=== PATIENT | male | born 1985 | race American Indian/Alaskan Native ===

== ENCOUNTER 2019-10-28 10:22 | Inpatient (IN) | payer OTHER ==
--- NOTE | 2019-10-28 11:26 | Emergency Department Report ---
Chief Complaint: Chest Pain Stated Complaint: COUIGH/SOB Time Seen by Provider: 10/28/19 11:16 - Exam Vital Signs: Vital Signs 10/28/19 10:58 Temperature 98.7 F Pulse Rate 85 Respiratory 18 Rate Blood Pressure 139/108 O2 Sat by Pulse 96 Oximetry MSE screening note: Focused history and physical exam performed. Due to findings the following was ordered: 34 yo male HIV + with hx of Sarcoma c/o of dry cough x 1 week . Denies fever, n/v and SOB. ED Disposition for MSE Condition: Stable
[2019-10-28 12:02] LABS: Basophils % (Auto) 0.8 % (0.0-1.8); Eosinophils # (Auto) 0.2 K/mm3 (0.0-0.4); Hematocrit 40.1 % (35.5-45.6); Hemoglobin 13.2 gm/dl (11.8-15.2); Lymphocytes # (Auto) 1.6 K/mm3 (1.2-5.4); Lymphocytes % (Auto) 41.4 % (13.4-35.0); Mean Corpuscular HGB Conc 33 % (32-34); Mean Corpuscular Volume 86 fl (84-94); Monocytes # (Auto) 0.5 K/mm3 (0.0-0.8); Monocytes % (Auto) 12.8 % (0.0-7.3); Platelet Count 217 K/mm3 (140-440); Red Blood Count 4.64 M/mm3 (3.65-5.03); Red Cell Distribution Width 19.2 % (13.2-15.2)
--- NOTE | 2019-10-28 12:06 | XRay Report ---
CHEST 2 VIEWS INDICATION: MAIN: cough FOR 1 TO 2 WEEKS. COMPARISON: None FINDINGS: Support devices: Right-sided Mediport with tip in the high right atrium. Heart: Within normal limits. Lungs/pleura: Patchy right basilar airspace disease with moderate-sized layering pleural effusion. N o pneumothorax. Additional findings: None. IMPRESSION: 1. Right basilar airspace disease with moderate-sized effusion could represent pneumonia with subpulm onic effusion. Left lung is clear. Signer Name: Juan Fisher MD Signed: 10/28/2019 12:02 PM Workstation Name: [id number]
--- NOTE | 2019-10-28 12:16 | Emergency Department Report ---
ED General Adult HPI - General Chief complaint: Upper Respiratory Infection Stated complaint: COUIGH/SOB Time Seen by Provider: 10/28/19 11:16 Source: patient, RN notes reviewed Mode of arrival: Ambulatory Limitations: No Limitations - History of Present Illness Initial comments: This is a pleasant 34-year-old gentleman. This patient is not known to this provider previously. His primary care infectious disease doctor is Dr. West, in [place]. His oncologist is Dr. Cruz, in [place]. Past medical history includes HIV, on highly active antiretroviral therapy, history of Kaposi sarcoma, status post chemotherapy, history of pneumonia, with pleural effusion, compressive atelectasis, requiring thoracentesis the past. He presents to the ER with a complaint of painless cough. He reports the last time he had a cough like this, he required a prolonged hospitalization, and multiple pleural taps. He denies headache, neck pain, chest pain, abdominal pain, severe shortness of breath, vomiting, diarrhea. He denies urinary symptoms. He endorses a secondary complaint of request for STI post exposure prophylaxis. He reports a recent sexual contact, and he is concerned about exposure to gonorrhea and/or Chlamydia. He denies rectal pain. He denies dyschezia. He is specifically concerned about gonorrhea and/or Chlamydia. -: Gradual Consistency: intermittent Improves with: none Worsens with: none - Related Data Allergies Allergy/AdvReac Type Severity Reaction Status Date / Time No Known Allergies Allergy Unverified 10/28/19 11:14 ED Review of Systems ROS: Stated complaint: COUIGH/SOB Other details as noted in HPI Constitutional: denies: fever Eyes: denies: eye discharge ENT: congestion Respiratory: cough. denies: wheezing Cardiovascular: denies: chest pain Gastrointestinal: denies: abdominal pain, nausea, vomiting Genitourinary: denies: dysuria Musculoskeletal: denies: myalgia Skin: denies: lesions Neurological: denies: weakness Hematological/Lymphatic: denies: easy bleeding ED Past Medical Hx - Past Medical History Previous Medical History?: Yes Hx HIV: Yes (on anti-virals) Additional medical history: Hx. Kaposi's sarcoma, pneumonia, collaspsed lung, Recent chemo tx. - Surgical History Past Surgical History?: No - Social History Smoking Status: Never Smoker Substance Use Type: None ED Physical Exam - General Limitations: No Limitations General appearance: alert, in no apparent distress - Head Head exam: Present: atraumatic, normocephalic - Eye Eye exam: Present: normal appearance, EOMI. Absent: nystagmus - ENT ENT exam: Present: normal exam, normal orophraynx, mucous membranes moist, normal external ear exam - Neck Neck exam: Present: normal inspection, full ROM. Absent: tenderness, meningismus - Respiratory Respiratory exam: Present: decreased breath sounds. Absent: respiratory distress, wheezes, rales, rhonchi, stridor - Cardiovascular Cardiovascular Exam: Present: regular rate, normal rhythm, normal heart sounds. Absent: bradycardia, tachycardia, irregular rhythm, systolic murmur, diastolic murmur, rubs, gallop - GI/Abdominal GI/Abdominal exam: Present: soft, normal bowel sounds. Absent: distended, tenderness, guarding, rebound, rigid, pulsatile mass - Rectal Rectal exam: Present: deferred - Extremities Exam Extremities exam: Present: normal inspection, full ROM, other (2+ pulses noted in the bilateral upper and lower extremities. Muscular compartments are soft. The pelvis is stable. There is no long bony tenderness.). Absent: pedal edema, joint swelling, calf tenderness - Back Exam Back exam: Present: normal inspection, full ROM. Absent: tenderness, CVA tenderness (R), CVA tenderness (L), paraspinal tenderness, vertebral tenderness - Neurological Exam Neurological exam: Present: alert, other (there is no facial droop. The tongue is midline. Extraocular movements are intact bilaterally. There is 5/5 strength bilateral upper and lower extremities. Sensation is intact to light touch bilateral upper and lower extremities.) - Psychiatric Psychiatric exam: Present: normal affect, normal mood - Skin Skin exam: Present: warm, dry, intact, normal color. Absent: rash ED Course Vital Signs 10/28/19 10:58 Temperature 98.7 F Pulse Rate 85 Respiratory 18 Rate Blood Pressure 139/108 O2 Sat by Pulse 96 Oximetry ED Medical Decision Making - Lab Data Result diagrams: 10/28/19 11:45 10/28/19 11:45 Vital Signs 10/28/19 10:58 Temperature 98.7 F Pulse Rate 85 Respiratory 18 Rate Blood Pressure 139/108 O2 Sat by Pulse 96 Oximetry Lab Results 10/28/19 Range/Units 11:45 WBC 3.9 L (4.5-11.0) K/mm3 RBC 4.64 (3.65-5.03) M/mm3 Hgb 13.2 (11.8-15.2) gm/dl Hct 40.1 (35.5-45.6) % MCV 86 (84-94) fl MCH 29 (28-32) pg MCHC 33 (32-34) % RDW 19.2 H (13.2-15.2) % Plt Count 217 (140-440) K/mm3 Lymph % (Auto) 41.4 H (13.4-35.0) % [place] % (Auto) 12.8 H (0.0-7.3) % Eos % (Auto) 5.0 H (0.0-4.3) % Baso % (Auto) 0.8 (0.0-1.8) % Lymph # 1.6 (1.2-5.4) K/mm3 [place] # 0.5 (0.0-0.8) K/mm3 Eos # 0.2 (0.0-0.4) K/mm3 Baso # 0.0 (0.0-0.1) K/mm3 Seg Neutrophils % 40.0 (40.0-70.0) % Seg Neutrophils # 1.6 L (1.8-7.7) K/mm3 - EKG Data -: EKG Interpreted by [place] EKG shows normal: sinus rhythm Rate: normal - EKG Data 10/28/19 12:52 There is no prior EKG available for comparison. EKG today shows a sinus rhythm, 70 bpm, normal axis, QTC is 381 ms, nonspecific T-wave abnormality in lead 3, borderline high left ventricular voltage, the EKG is abnormal, there is no prior for comparison, the EKG is not consistent with ST elevation myocardial infarction. - Radiology Data Radiology results: report reviewed, image reviewed Print Report Referring Physician: JUVE ZHENG Patient Name: SJ BUSTAMANTE Date of : 1985 Sex: Male Report Date: 2019-10-28 Report Status: Finalized Findings [facility] [address] [place] [address] XRay Report Signed Patient: SJ BUSTAMANTE MR#: [id number] : 1985 Acct:[id number] Age/Sex: 34 / M ADM Date: 10/28/19 Loc: ED Attending Dr: Ordering Physician: FRANKY RODRIGUEZ Date of Service: 10/28/19 Procedure(s): XR chest routine 2V Accession Number(s): [id number] cc: FRANKY RODRIGUEZ Fluoro Time In Minutes: CHEST 2 VIEWS INDICATION: MAIN: cough FOR 1 TO 2 WEEKS. COMPARISON: None FINDINGS: Support devices: Right-sided Mediport with tip in the high right atrium. Heart: Within normal limits. Lungs/pleura: Patchy right basilar airspace disease with moderate-sized layering pleural effusion. No pneumothorax. Additional findings: None. IMPRESSION: 1. Right basilar airspace disease with moderate-sized effusion could represent pneumonia with subpulmonic effusion. Left lung is clear. Signer Name: Juan Fisher MD Signed: 10/28/2019 12:02 PM Workstation Name: [id number] [place] scribed By: JW Dictated By: Juan Fisher MD Electronically Authenticated By: Juan Fisher MD Signed Date/Time: 10/28/19 1202 DD/ 1201 - Medical Decision Making Differential diagnosis, including but not limited to: Pneumonia, recurrent pleural effusion, immunocompromise, history of Kaposi's sarcoma, HIV/AIDS Assessment and plan: 34-year-old gentleman with painless cough, found to have moderate right-sided pleural effusion and pneumonia, he is not on chronic Bactrim suppressive therapy, who is afebrile with otherwise reassuring vital signs. Patient is immune compromise given history of Kaposi's sarcoma, completion of chemotherapy, and HIV, requiring highly active antiretroviral therapy. His physicians are not only here in [place] and they are out of state. Given this, we would recommend admission to the medical service for IV antibiotics, and further inpatient management, given that patient has high risk of decompensation, and is not easily able to follow up with his outpatient physicians. Discussed this plan of care with the patient who verbalized understanding, and was amenable to hospitalization. Contacted my colleague, Dr. Balderrama, Hospital physician, who has accepted the patient to the medical service. Patient denied rectal pain and urinary symptoms, therefore, we will cover with ceftriaxone and azithromycin, which should be appropriate for both gonorrhea and/or Chlamydia, and pneumonia. Critical care attestation.: If time is entered above; I have spent that time in minutes in the direct care of this critically ill patient, excluding procedure time. ED Disposition Clinical Impression: Pleural effusion, History of Kaposi's sarcoma, History of HIV infection Pneumonia Qualifiers: Pneumonia type: due to unspecified organism Laterality: right Lung location: unspecified part of lung Qualified Code(s): J18.9 - Pneumonia, unspecified organism Disposition: OP ADMIT IP TO THIS HOSP Is pt being admited?: Yes Condition: Stable Instructions: Bacterial Pneumonia (ED)
[2019-10-28 12:26] LABS: Alanine Aminotransferase 13 units/L (7-56); Albumin 3.7 g/dL (3.9-5); BUN/Creatinine Ratio 9; Blood Urea Nitrogen 7 mg/dL (9-20); Calcium 9.2 mg/dL (8.4-10.2); Hemolysis Index 21
[2019-10-28] MEDS ORDERED: cefTRIAXone/NS 1 GM/50 ML 1 GM/50 ML BAG IV ONE (12:35)
[2019-10-28] MEDS ORDERED: AZITHROMYCIN 250 MG TAB PO ONE (12:35)
[2019-10-28] MEDS ORDERED: SODIUM CHLORIDE 0.9% 500 ML 500 ML IV ONE (12:35)
--- NOTE | 2019-10-28 17:21 | History and Physical Report ---
History of Present Illness Date of admission: 10/28/19 12:56 Chief complaint: Im coughing, and its hard to breathe History of present illness: 33 YO Male with HIV on HAART Therapy, Kaposi Sarcoma S/P Chemotherapy presents to ED for evaluation. Pt states that he has experienced productive cough of clear sputum, and subjective fever over the past 4 days with worsening symptoms over the past 1 day. PT transported to [facility] via private vehicle. Pt seen and evaluated in ED and found to have Pneumonia complicated by an Effusion. Pt admitted to medical floor and initiated on Pneumonia protocol. Pt denies chills, chest pain, headache, neck pain, syncope, abdominal pain, severe shortness of breath, vomiting, diarrhea, skin rash or recent ill contacts. No prior admission for review. All medication listed at time of admission has been reconciled. Past History Past Medical History: other (See HPI) Past Surgical History: No surgical history, Other (reviewed) Social history: single. denies: smoking, alcohol abuse, prescription drug abuse Family history: no significant family history (reviewed) Medications and Allergies Allergies Allergy/AdvReac Type Severity Reaction Status Date / Time No Known Allergies Allergy Unverified 10/28/19 11:14 Review of Systems Constitutional: fever, malaise, no weight loss, no weight gain, no chills, no sweats, no night sweats Ears, nose, mouth and throat: no ear pain, no ear discharge, no tinnitis, no decreased hearing, no nose pain, no nasal congestion Cardiovascular: no chest pain, no edema, no syncope Respiratory: cough, cough with sputum, no hemoptysis, no shortness of breath, no dyspnea on exertion, no congestion Gastrointestinal: no nausea, no diarrhea, no constipation, no change in bowel habits Genitourinary Male: no hematuria, no flank pain, no discharge, no urinary frequency, no urinary hesitancy Rectal: no pain, no incontinence, no bleeding Musculoskeletal: no neck stiffness, no neck pain, no shooting arm pain, no arm numbness/tingling, no low back pain, no leg numbness/tingling Integumentary: no rash, no pruritis, no redness, no sores, no wounds, no jaundice Neurological: no paralysis, no tingling, no seizures, no tremors Psychiatric: no anxiety, no memory loss, no change in sleep habits, no insomnia Endocrine: no heat intolerance, no polyphagia, no excessive thirst, no polydipsia, no polyuria, no nocturia, no flushing Hematologic/Lymphatic: no easy bruising, no easy bleeding, no lymphadenopathy, no lymphedema Allergic/Immunologic: no urticaria, no allergic rhinitis, no persistent infectio ns, no anaphylaxis Exam - Constitutional Vitals: Temp Pulse Resp BP Pulse Ox 97.9 F 89 20 136/95 97 10/28/19 16:37 10/28/19 16:37 10/28/19 16:37 10/28/19 16:37 10/28/19 16:37 General appearance: Present: mild distress, cachectic - EENT Eyes: Present: PERRL ENT: hearing intact, clear oral mucosa - Neck Neck: Present: supple, normal ROM - Respiratory Respiratory effort: normal Respiratory: bilateral: diminished - Cardiovascular Heart Sounds: Present: S1 & S2. Absent: rub, click - Extremities Extremities: pulses symmetrical, No edema Peripheral Pulses: within normal limits - Abdominal General gastrointestinal: Present: soft, non-tender, non-distended, normal bowel sounds Male genitourinary: Present: normal - Integumentary Integumentary: Present: clear, warm, dry - Musculoskeletal Musculoskeletal: gait normal, strength equal bilaterally - Psychiatric Psychiatric: appropriate mood/affect, intact judgment & insight - Neurologic Neurologic: CNII-XII intact, moves all extremities Results - Labs CBC & Chem 7: 10/28/19 11:45 10/28/19 11:45 Labs: Abnormal lab results 10/28/19 10/28/19 10/28/19 Range/Units 11:45 11:45 13:09 WBC 3.9 L (4.5-11.0) K/mm3 RDW 19.2 H (13.2-15.2) % Lymph % (Auto) 41.4 H (13.4-35.0) % [place] % (Auto) 12.8 H (0.0-7.3) % Eos % (Auto) 5.0 H (0.0-4.3) % Seg Neutrophils # 1.6 L (1.8-7.7) K/mm3 BUN 7 L (9-20) mg/dL Lactate Dehydrogenase 212 H (91-180) units/L Total Protein 8.9 H (6.3-8.2) g/dL Albumin 3.7 L (3.9-5) g/dL Assessment and Plan - Patient Problems (1) Pneumonia Current Visit: Yes Status: Acute Qualifiers: Pneumonia type: due to unspecified organism Laterality: right Lung location: lower lobe of lung Qualified Code(s): J18.9 - Pneumonia, unspecified organism Plan to address problem: Pneumonia protocol: IV antibiotic therapy, IVF resuscitation therapy, CBC, CMP, Chest x ray, supplemental oxygen, pulse oximetry, nebulizer therapy. (2) HIV disease Current Visit: Yes Status: Acute Plan to address problem: continue HAART therapy, Outpatient ID F/U care. (3) Pleural effusion Current Visit: Yes Status: Acute Plan to address problem: Right Lateral Decubitus Chest x ray in am, supportive care (4) DVT prophylaxis Current Visit: Yes Status: Acute Plan to address problem: SCD to BLE while in bed, Pt ambulatory
[2019-10-28] MEDS ORDERED: ACETAMINOPHEN 325 MG TAB PO PRN (18:52)
[2019-10-28] MEDS ORDERED: ONDANSETRON 4 MG/2 ML INJ IV PRN (18:52)
[2019-10-28] MEDS ORDERED: oxyCODONE /ACETAMINOPHEN 5-325MG TAB PO PRN (18:52)
[2019-10-28] MEDS ORDERED: ALBUTEROL 2.5 MG/3 ML NEBU IH PRN (18:52)
--- NOTE | 2019-10-29 08:04 | XRay Report ---
CHEST 1 VIEW INDICATION: pleural effusion. COMPARISON: 10/28/2019. FINDINGS: Support devices: Right IJ chest port unchanged. Heart: Within normal limits. Lungs/Pleura: Right-sided pleural fluid with associated volume loss/consolidation is unchanged. Mild parenchymal change left base remains. Additional findings: None. IMPRESSION: No significant change. Signer Name: Aditya Ordaz MD Signed: 10/29/2019 8:00 AM Workstation Name: [id number]
[2019-10-29] MEDS: AZITHROMYCIN 500 MG in SODIUM CHLORIDE 0.9% 250ML 250 ML IV SCH (10:06)
[2019-10-29] MEDS: cefTRIAXone/NS 2 GM/100 ML 2 GM/100 ML BAG IV SCH (10:06)
[2019-10-29 10:34] LABS: INR 1.09 (0.87-1.13)
--- NOTE | 2019-10-29 15:14 | Progress Note ---
Assessment and Plan / Pneumonia w/o sepsis Pneumonia protocol: IV antibiotic therapy, IVF resuscitation therapy, supplemental oxygen, pulse oximetry, nebulizer therapy. follow cx, consult ID as has h/o HIV / HIV disease with h/o [place] continue HAART therapy, Outpatient ID F/U care. / Pleural effusion Right will order thoracetesis /DVT prophylaxis SCD to BLE while in bed, Pt ambulatory Brief History: The patient is a 34-year-old male with HIV on Biktarvy, Kaposi Sarcoma involving his skin, s/p chemotherapy came in to the emergency room with complaints of cough going on for about a week. CXR here was concerning for RLL pneumonia and effusion. He otherwise denies any fever or chills. admitted for further mx Hospitalist Physical exam: GENERAL: well-developed AAM lying on bed appeared to be in no discomfort. HEENT: Normocephalic. Atraumatic. No conjunctival congestion or icterus. Patient has moist mucous membranes. NECK: Supple. Trachea midline. CHEST/LUNGS: coarse BS auscultated bilaterally - right more than left, breathing nonlabored. HEART/CARDIOVASCULAR: Regular in rate and rhythm. S1 and S2 positive. ABDOMEN: Abdomen is soft, nontender. Patient has normal bowel sounds. SKIN: Warm and dry. NEURO: No focal motor deficit. Follows command. MUSCULOSKELETAL: No joint effusion or tenderness. EXTRIMITY: No edema, no cyanosis or clubbing. PSYCH: Cooperative. Subjective Date of service: 10/29/19 Interval history: Patient seen and examined. Medical records and medication list reviewed. No acute event overnight noted by the RN. Patient denies any chest pain but has difficulty breathing on exertion. Patient is tolerating diet. Discussed plan of care at bedside with patient. Objective - Constitutional Vitals: Vital Signs - 12hr 10/29/19 10/29/19 10/29/19 06:12 08:34 11:56 Temperature 99.0 F 97.7 F Pulse Rate 88 91 H Respiratory 18 18 Rate Blood Pressure 134/82 138/91 O2 Sat by Pulse 95 96 98 Oximetry - Labs CBC & Chem 7: 10/28/19 11:45 10/28/19 11:45
[2019-10-30] MEDS: AZITHROMYCIN 500 MG in SODIUM CHLORIDE 0.9% 250ML 250 ML IV SCH (09:17)
[2019-10-30] MEDS: cefTRIAXone/NS 2 GM/100 ML 2 GM/100 ML BAG IV SCH (10:28)
--- NOTE | 2019-10-30 11:54 | Ultrasound Report ---
ULTRASOUND CHEST HISTORY: Right pleural effusion TECHNIQUE: Transabdominal ultrasound FINDINGS: This exam was scheduled as an ultrasound guided right thoracentesis. The patient was brenda t down to the ultrasound department for that purpose. Targeted ultrasound on the right side of the ch est demonstrates no significant pleural fluid collection which could be safely accessed. Right pleura l fluid has nearly resolved. No left pleural effusion. Ultrasound thoracentesis was canceled. The pat ient was in agreement. IMPRESSION: No significant right pleural effusion accessible for thoracentesis. Signer Name: Praneeth Dyson Jr, MD Signed: 10/30/2019 11:50 AM Workstation Name: [id number]
--- NOTE | 2019-10-30 14:39 | Progress Note ---
Assessment and Plan / Pneumonia w/o sepsis Pneumonia protocol: IV antibiotic therapy, IVF resuscitation therapy, supplemental oxygen, pulse oximetry, nebulizer therapy. negative blood cx, consulted ID as has h/o HIV CT chest ordered / HIV disease with h/o [place] continue HAART therapy, Outpatient ID F/U care. / Pleural effusion Right, mild ordered thoracetesis - but not drainable /DVT prophylaxis SCD to BLE while in bed, Pt ambulatory Brief History: The patient is a 34-year-old male with HIV on Biktarvy, Kaposi Sarcoma involving his skin, s/p chemotherapy came in to the emergency room with complaints of cough going on for about a week. CXR here was concerning for RLL pneumonia and effusion. He otherwise denies any fever or chills. admitted for further mx Hospitalist Physical exam: GENERAL: well-developed AAM lying on bed appeared to be in no discomfort. HEENT: Normocephalic. Atraumatic. No conjunctival congestion or icterus. Patient has moist mucous membranes. NECK: Supple. Trachea midline. CHEST/LUNGS: coarse BS auscultated bilaterally - right more than left, breathing nonlabored. HEART/CARDIOVASCULAR: Regular in rate and rhythm. S1 and S2 positive. ABDOMEN: Abdomen is soft, nontender. Patient has normal bowel sounds. SKIN: Warm and dry. NEURO: No focal motor deficit. Follows command. MUSCULOSKELETAL: No joint effusion or tenderness. EXTRIMITY: No edema, no cyanosis or clubbing. PSYCH: Cooperative. Subjective Date of service: 10/30/19 Interval history: Patient seen and examined. Medical records and medication list reviewed. No acute event overnight noted by the RN. Patient denies any chest pain but has minimal difficulty breathing on exertion - saturating 98-96% on RA. Patient is tolerating diet. Discussed plan of care at bedside with patient. Objective - Constitutional Vitals: Vital Signs - 12hr 10/30/19 10/30/19 04:12 11:56 Temperature 98.1 F 98.0 F Pulse Rate 84 80 Respiratory 18 18 Rate Blood Pressure 135/85 129/89 O2 Sat by Pulse 96 97 Oximetry - Labs CBC & Chem 7: 10/28/19 11:45 10/28/19 11:45
--- NOTE | 2019-10-30 15:38 | Consultation ---
History of Present Illness - Reason for Consult Consult date: 10/30/19 Right sided recurrent pneumonia, HIV Requesting physician: CRISTOBAL FORBES - History of Present Illness The patient is a 34-year-old male with HIV on Biktarvy, Kaposi Sarcoma involving his skin, s/p chemotherapy came in to the emergency room with complaints of cough going on for about a week. Cough is mainly dry. Last year, he reports a history of severe right lower lobe pneumonia complicated by pleural effusion that required multiple thoracentesis as well as a prolonged hospital stay and a pparently symptoms at that time also started off with a cough. Hence, he was worried that something similar might develop if he waits too long. CXR here was concerning for RLL pneumonia and effusion. He otherwise denies any fever or chills. Breathing is fair. Currently, was started empirically on ceftriaxone. Infectious disease was consulted for additional recommendations. Gets his care in [place], [place]. ID and oncologists are there. 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 He was initially on Genvoya and then transitioned to Biktarvy, reports an undetectable viral load, CD4 count was good and was taken off Bactrim prophylaxis. Remains compliant. Last chemo cycle in September first week, supposed to be complete. Review of Systems: General: no fevers,chills or rigors HEENT: no new visual disturbance Respiratory: dry cough +, no sputum, hemoptysis or shortness of breath Cardiovascular: No chest pain, syncope Gastrointestinal: No nausea, vomiting or diarrhea Genitourinary: No dysuria or hematuria Musculoskeletal: No new or worsening neck pain or back pain Neurologic: No headaches, seizures Hematologic: No easy bruising or bleeding Endocrine: No night sweats or acute weight loss Skin: negative for rash, jaundice Psychiatric: No suicidal or homicidal ideation Past History Past Medical History: other (See HPI) Past Surgical History: No surgical history, Other (reviewed) Social history: single. denies: smoking, alcohol abuse, prescription drug abuse Family history: no significant family history (reviewed) Medications and Allergies Allergies Allergy/AdvReac Type Severity Reaction Status Date / Time No Known Allergies Allergy Unverified 10/28/19 11:14 Home Medications Medication Instructions Recorded Confirmed Last Taken Type Bictegrav/Emtricit/Tenofov Ala 50 - 200 mg PO DAILY 10/28/19 10/29/19 Unknown History [Biktarvy 50-200-25 mg (Nf)] Active Meds: Active Medications Acetaminophen (Tylenol) 650 mg PO Q4H PRN PRN Reason: Pain MILD(1-3)/Fever >100.5/PERDUE Albuterol (Proventil) 2.5 mg IH Q4HRT PRN PRN Reason: Shortness Of Breath Ceftriaxone Sodium (Rocephin/Ns 2 Gm/100 Ml) 2 gm in 100 mls @ 200 mls/hr IV Q24HR HUONG; Protocol Last Admin: 10/30/19 10:28 Dose: 200 mls/hr Documented by: Azithromycin 500 mg/ Sodium (Chloride) 250 mls @ 250 mls/hr IV Q24HR HUONG; Protocol Last Admin: 10/30/19 09:17 Dose: 250 mls/hr Documented by: Ondansetron HCl (Zofran) 4 mg IV Q8H PRN PRN Reason: Nausea And Vomiting Oxycodone/Acetaminophen (Percocet 5/325) 1 tab PO Q6H PRN PRN Reason: Pain, Moderate (4-6) Sodium Chloride (Sodium Chloride Flush Syringe 10 Ml) 10 ml IV BID [facility] Last Admin: 10/30/19 09:22 Dose: 10 ml Documented by: Sodium Chloride (Sodium Chloride Flush Syringe 10 Ml) 10 ml IV PRN PRN PRN Reason: LINE FLUSH Physical Examination - Physical Exam Narrative exam: Physical Exam: Constitutional: Alert, cooperative. No acute distress Head, Ears, Nose: Normocephalic, atraumatic. External ears, nose normal Eyes: Conjunctivae/corneas clear. No icterus. No ptosis. Neck: Supple, no meningeal signs Oral: dentition fair, no thrush Cardiovascular: S1, S2 normal. Respiratory: R basal crackles. GI: Soft, non-tender; bowel sounds normal. No peritoneal signs Musculoskeletal: No pedal edema, no cyanosis. No PORT site tenderness Skin: Skin lesions with KS purplish hyperpigmented papular spots Hem/Lymphatic: No palpable cervical or supraclavicular nodes. No lymphangitis Psych: Mood ok. Affect normal Neurological: Awake, alert, oriented. No gross abnormality - Constitutional Vitals: Vital Signs Temp Pulse Resp BP Pulse Ox 98.0 F 80 18 129/89 97 10/30/19 11:56 10/30/19 11:56 10/30/19 11:56 10/30/19 11:56 10/30/19 11:56 Temperature -Last 24 Hours Temperature 98.0 F Temperature 98.1 F Temperature 98.5 F Temperature 98.2 F Results - Labs CBC & Chem 7: 10/28/19 11:45 10/28/19 11:45 - Imaging and Cardiology Chest x-ray: report reviewed, image reviewed (RLL opacity) Assessment and Plan Cultures: 10/28/2019 blood culture: No growth 10/29/2019 MRSA culture: in process A/P: 34-year-old male with HIV on Biktarvy, Kaposi Sarcoma involving his skin, s/p chemotherapy admitted with: 1) R sided pneumonia with pleural effusion: No fever or leucocytosis. Similar presentation 1 year ago. Hence, unclear if he has any residual chronic RLL collapse or this is new. Continue Ceftriaxone, add Azithromycin. Get CT chest to eval better. Will be helpful if his previous imaging can be obtained. 2) HIV & KS: Gets his care in [place]. ID and oncologists are there. 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 He was initially on Genvoya and then transitioned to Biktarvy, reports an undetectable viral load, CD4 count was good and was taken off Bactrim prophylaxis. Remains compliant. Last chemo cycle in September first week, supposed to be complete. Recs: Continue Ceftriaxone Added Azithromycin Get CT chest without contrast to eval R side HIV VL and CD4 counts ordered Patient will use his own Biktarvy, does not want formulary alternatives (Truvada + Tivicay). He is going to have someone bring it in this evening. Procalcitonin ordered Brynn Shepherd MD, FACP [facility] ([facility]) C: [phone] O: [phone] F: [phone]
--- NOTE | 2019-10-30 16:47 | Cat Scan Report ---
CT CHEST WITHOUT IV CONTRAST INDICATION: Recurrent RLL pneumonia, HIV. COMPARISON: Recent radiographs were reviewed. No prior chest CTs. TECHNIQUE: All CT scans at this location are performed using CT dose reduction for ALARA by means of automated e xposure control. Axial CT images were obtained through the chest after IV contrast. FINDINGS: Upper Abdomen: No acute abnormality. Skeletal System: No acute abnormality. Chest: Great Vessels: No acute abnormality. Heart: Normal. Mediastinum & Lizbeth: No significant abnormality. Lungs: There is a predominantly peribronchovascular reticulonodular disease within the right lung, gr eatest within the right lower lobe and right middle lobe. Mild peribronchovascular disease is seen wi thin the inferior right upper lobe and within the lingular portion of the left upper lobe. Pleura: There is a small right pleural effusion which tracks along the fissures. No left pleural effu haleigh. No pneumothorax. Additional Findings: None. IMPRESSION: 1. Peribronchovascular and perilymphatic reticulonodular changes, greatest in the right middle and ri ght lower lobes. There are mild consolidative changes in the right lung base as well with associated right pleural effusion which tracks along the fissures. These findings could be due to lower airways disease. Atypical infections should be considered. Noninfectious etiologies such as Kaposi sarcoma co uld have this appearance. Signer Name: Gab Zamudio MD Signed: 10/30/2019 4:42 PM Workstation Name: [id number]
[2019-10-30] MEDS: AZITHROMYCIN 250 MG TAB PO SCH (19:35)
[2019-10-31] MEDS: AZITHROMYCIN 250 MG TAB PO SCH (09:05)
[2019-10-31] MEDS: cefTRIAXone/NS 2 GM/100 ML 2 GM/100 ML BAG IV SCH (09:05)
--- NOTE | 2019-10-31 11:36 | Discharge Summary ---
Providers - Providers Date of Admission: 10/28/19 12:56 Date of discharge: 10/31/19 Attending physician: CRISTOBAL FORBES 10/29/19 15:13 Consult to Physician [CONS] Routine Comment: Consulting Provider: MIKAEL HURD Physician Instructions: Reason For Exam: RT side recurrent PNA and HIV [facility] Condition: Stable Hospital course: The patient is a 34-year-old male with HIV on Biktarvy, Kaposi Sarcoma involving his skin, s/p chemotherapy came in to the emergency room with complaints of cough going on for about a week. CXR here was concerning for RLL pneumonia and effusion. He otherwise denies any fever or chills. admitted for further mx Discharge diagnosis: / Pneumonia w/o sepsis Placed on Pneumonia protocol: IV antibiotic therapy, IVF resuscitation therapy, supplemental oxygen, pulse oximetry, nebulizer therapy. negative blood cx, consulted ID as has h/o HIV CT chest ordered: 1. Peribronchovascular and perilymphatic reticulonodular changes, greatest in the right middle and right lower lobes. There are mild consolidative changes in the right lung base as well with associated right pleural effusion which tracks along the fissures. These findings could be due to lower airways disease. Atypical infections should be considered. Noninfectious etiologies such as Kaposi sarcoma could have this appearance. discharged with ceftin and zithromax for additional 5 days will f/u with ID and pulmonary as outpt / HIV disease with h/o KS continue HAART therapy, Outpatient ID F/U care. / Pleural effusion Right, mild ordered thoracetesis - but not drainable /DVT prophylaxis SCD to BLE while in bed, Pt ambulatory Hospitalist Physical exam: GENERAL: well-developed AAM lying on bed appeared to be in no discomfort. HEENT: Normocephalic. Atraumatic. No conjunctival congestion or icterus. Patient has moist mucous membranes. NECK: Supple. Trachea midline. CHEST/LUNGS: coarse BS auscultated bilaterally - right more than left, breathing nonlabored. HEART/CARDIOVASCULAR: Regular in rate and rhythm. S1 and S2 positive. ABDOMEN: Abdomen is soft, nontender. Patient has normal bowel sounds. SKIN: Warm and dry. NEURO: No focal motor deficit. Follows command. MUSCULOSKELETAL: No joint effusion or tenderness. EXTRIMITY: No edema, no cyanosis or clubbing. PSYCH: Cooperative. Disposition: DC-01 TO HOME OR SELFCARE Time spent for discharge: 34 minutes Core Measure Documentation - Palliative Care Palliative Care/ Comfort Measures: Not Applicable - Core Measures Any of the following diagnoses?: none Exam - Constitutional Vitals: Temp Pulse Resp BP Pulse Ox 97.9 F 79 24 120/79 97 10/31/19 04:33 10/31/19 04:33 10/31/19 04:33 10/31/19 04:33 10/31/19 04:33 Plan Activity: advance as tolerated Weight Bearing Status: Weight Bear as Tolerated Diet: low fat, low salt Follow up with: [facility] ANGEL[facility] [Primary Care Provider] - 7 Days MIKAEL HURD MD [Staff Physician] - 7 Days JENNY OSBORNE MD [Staff Physician] - 7 Days Prescriptions: cefUROXime [Ceftin] 500 mg PO Q12H #20 tablet ALBUTEROL Inhaler (OR & NICU) [ProAir HFA Inhaler] 1 puff IH Q6H PRN #8.5 gram PRN Reason: Shortness Of Breath Azithromycin [Zithromax TAB] 500 mg PO QDAY #5 tablet
--- NOTE | 2019-10-31 12:00 | Progress Note ---
Assessment and Plan Cultures: 10/28/2019 blood culture: No growth 10/29/2019 MRSA culture: in process A/P: 34-year-old male with HIV on Biktarvy, Kaposi Sarcoma involving his skin, s/p chemotherapy admitted with: 1) R sided pneumonia with pleural effusion: No fever or leucocytosis. Similar presentation 1 year ago. Hence, unclear if he has any residual chronic RLL collapse or this is new. CT chest shows peribronchovascular and perilymphatic reticulonodular changes in the right middle and lower lobes. Will be helpful if his previous imaging can be obtained. Patient is clinically stable, also with no fever or WBC elevation. He would like to go home today, which is reasonable. He needs to follow up outpatient with his physicians (ID, oncology) and also with pulmonary, since these changes very well could be chronic given his previous history. Procal is <0.05. 2) HIV & KS: Gets his care in [place], [place]. ID and oncologists are there. 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 He was initially on Genvoya and then transitioned to Biktarvy, reports an undetectable viral load, CD4 count was good and was taken off Bactrim prophylaxis. Remains compliant. Last chemo cycle in September first week, supposed to be complete. Recs: Ok for discharge on PO Ceftin 500 mg BID + Azithromycin 500 mg daily x 5 days Patient is agreeable to follow up utpatient with his physicians (ID, oncology) and also with pulmonary, since these changes very well could be chronic given his previous history. Procal is <0.05. D/W Dr. White. Brynn Shepherd MD, [facility] ([facility]) C: [phone] O: [phone] F: [phone] Subjective Date of service: 10/31/19 Interval history: No fever. Cough is also improved. Wants to go home. Objective - Exam Narrative Exam: Physical Exam: Constitutional: Alert, cooperative. No acute distress Head, Ears, Nose: Normocephalic, atraumatic. External ears, nose normal Eyes: Conjunctivae/corneas clear. No icterus. No ptosis. Neck: Supple, no meningeal signs Oral: dentition fair, no thrush Cardiovascular: S1, S2 normal. Respiratory: faint R basal crackles. GI: Soft, non-tender; bowel sounds normal. No peritoneal signs Musculoskeletal: No pedal edema, no cyanosis. No PORT site tenderness Skin: Skin lesions with KS purplish hyperpigmented papular spots Hem/Lymphatic: No palpable cervical or supraclavicular nodes. No lymphangitis Psych: Mood ok. Affect normal Neurological: Awake, alert, oriented. No gross abnormality - Constitutional Vitals: Vital Signs Temp Pulse Resp BP Pulse Ox 97.9 F 79 24 120/79 97 10/31/19 04:33 10/31/19 04:33 10/31/19 04:33 10/31/19 04:33 10/31/19 04:33 Temperature -Last 24 Hours Temperature 97.9 F Temperature 98.1 F Temperature 99.0 F - Labs CBC & Chem 7: 10/28/19 11:45 10/28/19 11:45
[2019-10-31 13:11] VITALS: BP 88/50
[2019-11-02 15:05] LABS: HIV-1 RNA QN PCR 1.73 Log cps/mL
[2019-11-06 13:13] LABS: Lymphocytes, Absolute SEE SCANNED RESULT
[2019-11-06 13:14] LABS: CD19, Absolute SEE SCANNED RESULT; CD3, Absolute SEE SCANNED RESULT; CD3, Percentage SEE SCANNED RESULT; CD4, Absolute SEE SCANNED RESULT; CD4, Percentage SEE SCANNED RESULT; CD4/CD8 Ratio SEE SCANNED RESULT; CD8, Absolute SEE SCANNED RESULT; CD8, Percentage SEE SCANNED RESULT
== END 2019-10-31 13:30 | disposition home or self-care (01) | DRG 975 ==
LOC: ED 10:22 → 3A 12:56
PROVIDERS: ADMIT Internal Medicine; ATTEND Internal Medicine
DX: J18.1 Lobar pneumonia, unspecified organism (principal); B20 Human immunodeficiency virus [HIV] disease; J90 Pleural effusion, not elsewhere classified; C46.9 Kaposi's sarcoma, unspecified; J98.11 Atelectasis; J98.19 Other pulmonary collapse; Z92.21 Personal history of antineoplastic chemotherapy; Z79.899 Other long term (current) drug therapy
CPT/HCPCS: 36415; 71045; 71046; 71250; 76604; 80053; 82024; 82140; 82550; 83615; 83735; 84145; 85025; 85610; 87040; 87116; 87536; 93005; 93010; 94640; 96365; G0378; J0456; J0696; J7040; J7050